=== PATIENT | male | born 1965 | race Caucasian/White ===

== ENCOUNTER → 2021-02-09 14:40 | Outpatient (BNVA) | payer OTHER, SELFPAY | PROVIDERS: Family Provider Nurse Practitioner Family; PCP Nurse Practitioner Family; Visit Provider Family Medicine | DX: R05.9 Cough, unspecified (principal); R06.00 Dyspnea, unspecified; R50.9 Fever, unspecified; R52 Pain, unspecified; Z20.822 Contact with and (suspected) exposure to COVID-19 | CPT/HCPCS: 87400; 87635 ==

== ENCOUNTER 2021-02-13 08:04 | Outpatient (CLI) | payer SELFPAY ==
[2021-02-13 08:11] VITALS: BP 194/97; PULSE 73; RESP 16; TEMP 36.8; O2SAT 95
[2021-02-13 08:44] VITALS: BP 156/92; PULSE 83; RESP 16; TEMP 36.9; O2SAT 94
[2021-02-13 09:45] VITALS: BP 173/96; PULSE 90; RESP 16; TEMP 36.1; O2SAT 92
--- NOTE | 2021-02-13 13:48 | PC.NURSE ---
VITALS CHARTED BY SARAH ST RN. CARE PROVIDED BY MITESH REYES AND KATHE ARGUETA.
== END 2021-02-13 08:05 | disposition home or self-care (01) ==
LOC: OPS 08:10
PROVIDERS: PCP Nurse Practitioner Family; Visit Provider Family Medicine
DX: U07.1 COVID-19 (principal)
CPT/HCPCS: 96365